=== PATIENT | female | born 1995 | race Caucasian/White ===

== ENCOUNTER 2021-11-02 12:15 | Emergency (ER) | payer BC ==
[~2021-11-02] VITALS: Ht 170.2 cm; Wt 74.1 kg
[~2021-11-02 12:15] MED LIST: ORTHO TRI-CYCLE1 TA2 PO
[2021-11-02 13:52] LABS: COLLECTION METHOD CLEAN CATCH
[2021-11-02 13:56] LABS: BASO % 0.1 % (0.0-2.0); GRAN # 6.3 K/mm3 (1.4-6.5); GRAN % 89.9 % (42.2-75.2); HEMATOCRIT 38.5 % (37.0-47.0); HEMOGLOBIN 13.4 g/dl (12.5-16.0); LYMPH # 0.3 K/mm3 (1.2-3.4); LYMPH % 3.7 % (20.0-51.0); MEAN CELL VOLUME 88 fl (80.0-100.0); MEAN CORPUSCULAR HEMOGLOBIN 31 pg (27-31); MEAN CORPUSCULAR HGB CONC 35 g/dl (33.0-37.0); MEAN PLATELET VOLUME 9.7 fl (7.4-10.4); MONO # 0.4 K/mm3 (0.1-0.6); MONO % 5.9 % (1.7-9.3); PLATELET COUNT 202 K/mm3 (130-400); RED BLOOD COUNT 4.36 M/mm3 (4.10-5.30); REDCELL DISTRIBUTION WIDTH-CV 12.5 % (11.5-14.5)
[2021-11-02 14:09] LABS: MUCOUS Present (NOT PRESENT); PH 5 (5-8); SQUAMOUS EPITHELIAL 0-2 /hpf (0-10); URINE APPEARANCE Hazy (CLEAR/HAZY); URINE BACTERIA None Seen /hpf (NONE SEEN); URINE BILIRUBIN Negative (NEGATIVE); URINE BLOOD Negative (NEGATIVE); URINE COLOR Yellow (YELLOW); URINE GLUCOSE Negative (NEGATIVE); URINE KETONE 2+ (NEGATIVE); URINE LEUKOCYTE ESTERASE Negative (NEGATIVE); URINE NITRATE Negative (NEGATIVE); URINE PROTEIN(semi-quant) Negative (NEGATIVE); URINE RBC 0-2 /hpf (0-2); URINE UROBILINOGEN Negative (NEGATIVE)
[2021-11-02 14:25] LABS: ALBUMIN 3.9 gm/dL (3.5-5.0); BILIRUBIN,TOTAL 0.4 mg/dL (0.2-1.2); CALCIUM 9.5 mg/dL (8.4-10.2); CREATININE, serum 0.71 mg/dL (0.57-1.11); MAGNESIUM 1.8 mg/dL (1.6-2.6); POTASSIUM 3.8 mmol/L (3.5-4.5); TOTAL PROTEIN 7.2 gm/dL (6.2-8.1)
[2021-11-02] MEDS ORDERED: CEPHALEXIN500 M1 PO (15:00)
[2021-11-02 15:12] VITALS: BP 104/64; PULSE 75; TEMP 100.1
== END 2021-11-02 15:15 | disposition home or self-care (01) ==
LOC: COL.ER 12:15
PROVIDERS: Emergency Medicine
DX: O98.511 Other viral diseases complicating pregnancy, first trimester (principal); U07.1 COVID-19; O23.41 Unspecified infection of urinary tract in pregnancy, first trimester; N39.0 Urinary tract infection, site not specified; Z3A.12 12 weeks gestation of pregnancy
CPT/HCPCS: J2765; J7030

== ENCOUNTER 2022-05-14 03:12 | Inpatient (IN) | payer BC ==
[~2022-05-14] VITALS: Ht 170.2 cm; Wt 90.9 kg
[2022-05-14] VITALS (33 sets, daily range): BP systolic 110–145; BP diastolic 66–91; PULSE 56–97; TEMP 97.8–98.4
[~2022-05-14 03:12] MED LIST changes: +CEPHALEXIN500 M1 PO
[2022-05-14 07:44] LABS: BASO % 0.4 % (0.0-2.0); EOS # 0.1 K/mm3 (0.0-0.7); EOS % 1.2 % (0.0-4.0); GRAN # 5.7 K/mm3 (1.4-6.5); GRAN % 66.2 % (42.2-75.2); HEMOGLOBIN 11.5 g/dl (12.5-16.0); LYMPH # 2.3 K/mm3 (1.2-3.4); LYMPH % 27.2 % (20.0-51.0); MEAN CELL VOLUME 88 fl (80.0-100.0); MEAN CORPUSCULAR HEMOGLOBIN 30 pg (27-31); MEAN CORPUSCULAR HGB CONC 33 g/dl (33.0-37.0); MEAN PLATELET VOLUME 11.1 fl (7.4-10.4); MONO # 0.4 K/mm3 (0.1-0.6); MONO % 4.1 % (1.7-9.3); PLATELET COUNT 202 K/mm3 (130-400); REDCELL DISTRIBUTION WIDTH-CV 13.7 % (11.5-14.5)
[2022-05-14 07:47] LABS: HEMATOCRIT 34.4 % (37.0-47.0)
[2022-05-14] MEDS ORDERED: PRENATAL TABLET PO (08:05)
--- NOTE | 2022-05-14 08:06 | NUR ---
0635 PATIENT ARRIVED ON UNIT AND CHANGED INTO GOWN. 0644 PLACED ON MONITOR AND VITALS TAKEN. 0657 IV STARTED. 07 SVE OF /3. CONSENTS GIVEN, EXPLAINED AND SIGNED. 07 MD CALLED AND NOTIFED PATIENT ARRIVED AND SVE. STATED IT IS OKAY TO PLACE ORDERS AND START PITOCIN. WILL BE IN LATER TO BREAK WATER. 0735 LR STARTED 07 PITOCIN STARTED AT 2 MU/MIN. ADMISSION ASSESSMENT COMPLETED. CALL BYRD AND BELONGINGS WITHIN REACH. NO NEEDS AT THIS TIME.
--- NOTE | 2022-05-14 12:24 | NUR ---
1125 PATIENT SAT UP AND READY FOR EPIDURAL. HARD TO TRACE BABY SO PITOCIN PAUSED AND TAKEN OFF MONITOR. 1126 ANESTHESIA AT THE BEDSIDE. 1129 TIME OUT AND PROCEDURE STARTED 1139 SINGLE SHOT TEST DOSE GIVEN. 1145 PATIENT LAID BACK FROM EPIDURAL PLACEMENT. 1146 NEW BAG OF LR HUNG AND PITOCIN RESTARTED 1152 MD AT BESIDE 1153 SVE OF 4/80/-2 VERBAL ORDERS TO GO UP TO 30 MU/MIN OF PITOCIN IF NEEDED BY MD. NO OTHER ORDERS AT THIS TIME. CALL ROCHELLE AND AYAZ AT BEDSIDE. WILL RETURN TO PLACE [facility] CATH.
--- NOTE | 2022-05-14 14:01 | NUR ---
PATIENT HAVING DEEP VARIBLES WITH EACH CONTRACTION. SEVERAL POSITION CHANGES. 1320 LEFT LATERAL POSITION 1323 SVE 5-6/80/-2 1330 RIGHT LATERAL PEANUT BALL 1346 EXTREAME RIGHT LATERAL WITH LEG IN STIRRUP 1358 SVE 9/90/-1 1400 CALL TO MD TO UPDATE O PATIENT. NO NEW ORDERS AT THIS TIME.
--- NOTE | 2022-05-14 16:39 | NUR ---
1427 PATIENT STILL HAVING RECURRING VARIABLE DECELS. SVE 10/+1 1430 MD CALLED AND UPDATED. INFORMED OF SVE AND RECURRENT VARIABLE DECELS. STATED TO PRACTICE PUSH WITH PATIENT. 1433 BEGAIN PRACTICE PUSHING WITH PATIENT. PUSHING WELL WITH GOOD MOVEMENT OF BABY. HEART RATE SHOWING DEEP AND RECURRENT VARIBLES WITH EACH CONTRACTION. 1446 MD CALLED UPDATED ON PUSHING AND RECURRENT VARIBLE DECELS. MD ON HIS WAY. 1449 [facility]ATH TAKEN OUT WITH 300 CC OF URINE. PATIENT PLACED IN STIRRUPS AND PREPPED FOR DELIVERY. 1450 MD AT BEDSIDE. GOWNED AND READY FOR DELIVERY. 1451 PITOCIN PAUSED DUE TO RECURRENT VARIBLE DECELS. PATIENT PUSHING WELL. 1453 HEAD OF INFANT DELIVERED WITH NUCAL X2. 1454 REMAINDER OF INFANT DELIVERED AND SUCTIONED. DELAYED CORD CLAMPING AND THEN PLACED ON MOTHERS CHEST. HEALTHY BABY GIRL DELIVERED. 1557 SPONTANEOUS DELIVERY OF PLACENTA AND BOLUS STARTED OF PITOCIN. MD REPAIRED A SUPERFICIAL VAGINAL TEAR. PATIENT WIPED AND CLEANED OFF, BED PLACED BACK TOGETHER, AND LEGS DOWN WITH INFANT ON CHEST. 1515 RECOVERY BEGAN. CALL BYRD AND BELONGINGS AT BEDSIDE.
--- NOTE | 2022-05-14 18:30 | NUR ---
Resting in bed at this time eating food from [employer]. Reports she attempted to stand at the bedside with off-going nurse and her "right leg" was "unable to hold weight." POC reviewed. Going to attempt to ambulated in an hour. Denied questions or concerns.
--- NOTE | 2022-05-14 19:40 | NUR ---
VS and assessment completed. Sat on the side of the bed then stood at bedside. Able to take steps at bedside, right leg able to bear weight. Ambulated to restroom. Voided 800mls. Educated on pericare. Fresh underwear and peripad in place. Ambulated to room with and support person. Oriented to room. Ambulating in room with a steady gait. Questions invited and answered. Whiteboard updated.
[2022-05-15 01:00] VITALS: BP 118/77; PULSE 82; TEMP 97.7
[2022-05-15 07:45] VITALS: BP 128/71; PULSE 75; TEMP 97.9
--- NOTE | 2022-05-15 09:00 | NUR ---
Initial visit; Parents thanked [employer] Man for offering congratulations and God's blessings for the of their daughter. Tiller Man thanked family for choosing [facility].
[2022-05-15] MEDS ORDERED: PERCOCET 325 MG1 TA2 PO (16:52)
[2022-05-15] MEDS ORDERED: MOTRIN 800800 MG/TAB PO (16:52)
[2022-05-15 17:37] VITALS: BP 136/82; PULSE 67; TEMP 97.6
[2022-05-15 20:30] VITALS: BP 137/79; PULSE 61; TEMP 98.1
[2022-05-16 07:47] VITALS: BP 121/86; PULSE 70; TEMP 98.8
--- NOTE | 2022-05-16 11:16 | NUR ---
Discharge instructions reviewed with pt regarding trace care, diet, follow-up, pain control and reasons to call doctor. Questions invited and answered. Pt verbalizes understanding. Pt will eat lunch and call when ready for discharge.
== END 2022-05-16 12:15 | disposition home or self-care (01) | DRG 807 ==
LOC: OB 03:12 → LDR 06:28 → OB 06:28
PROVIDERS: ADMIT Obstetrics & Gynecology
PROC: 10E0XZZ Delivery of Products of Conception, External Approach (ICD-10-PCS; principal; 2022-05-14)
PROC: 0UQMXZZ Repair Vulva, External Approach (ICD-10-PCS; 2022-05-14)
PROC: 10907ZC Drainage of Amniotic Fluid, Therapeutic from Products of Conception, Via Natural or Artificial Opening (ICD-10-PCS; 2022-05-14)
DX: O70.0 First degree perineal laceration during delivery (principal); Z37.0 Single live birth; O69.81X0 Labor and delivery complicated by cord around neck, without compression, not applicable or unspecified; Z3A.40 40 weeks gestation of pregnancy; Z86.16 Personal history of COVID-19
CPT/HCPCS: J2590; J7120